=== PATIENT | female | born 1985 | race Caucasian/White ===

== ENCOUNTER 2022-07-02 04:50 | Emergency (ER) | payer OTHER, SELFPAY ==
[2022-07-02 04:59] VITALS: BP 137/85; PULSE 80; RESP 18; TEMP 36.7; O2SAT 100; BMI 28.7
== END 2022-07-02 05:22 | disposition left against medical advice (07) ==
PROVIDERS: Emergency Provider Emergency Medicine
DX: I10 Essential (primary) hypertension (principal)
CPT/HCPCS: 99281